=== PATIENT | female | born 1995 | race Hispanic/Latino ===

== ENCOUNTER 2021-08-20 11:41 | Outpatient (CLI) | payer OTHER | END 2021-08-20 11:42 | disposition home or self-care (01) | LOC: CSHLAB 11:41 | PROVIDERS: ATTEND Student in an Organized Health Care Education/Training Program | DX: Z20.822 Contact with and (suspected) exposure to COVID-19 (principal) | CPT/HCPCS: U0003; U0005 ==

== ENCOUNTER 2021-08-24 19:30 | Inpatient (IN) | payer OTHER ==
[2021-08-24 20:24] VITALS: BMI 37.0
[2021-08-24] MEDS ORDERED: Promethazine HCl 25 MG/ML VIAL IM PRN (21:17)
[2021-08-24] MEDS ORDERED: Lidocaine 1% (PF) 30 ML VIAL SC PRN (21:17)
[2021-08-24] MEDS ORDERED: Methylergonovine 0.2 MG/ML VIAL IM PRN (21:17)
[2021-08-24] MEDS ORDERED: HYDROcodone/Acetaminophen 5/325 mg Tablet PO PRN (21:17)
[2021-08-24] MEDS ORDERED: Insulin Regular 300 UNITS/3 ML VIAL SC PRN (21:17)
[2021-08-24] MEDS ORDERED: Acetaminophen 500 MG TAB PO PRN (21:17)
[2021-08-24] MEDS ORDERED: Carboprost 250 MCG/ML AMP IM PRN (21:17)
[2021-08-24] MEDS ORDERED: Dextrose 50% Abboject 50 ML SYRINGE SLOW IVP PRN (21:17)
[2021-08-24] MEDS ORDERED: Dextrose 5% in Water 1,000 ML IV PRN (21:17)
[2021-08-24] MEDS ORDERED: hydrALAZINE 20 MG/ML VIAL SLOW IVP PRN (21:17)
[2021-08-24] MEDS ORDERED: Misoprostol 200 MCG TAB PR PRN (21:17)
[2021-08-24] MEDS ORDERED: Ibuprofen 800 MG TAB PO PRN (21:17)
[2021-08-24] MEDS ORDERED: Butorphanol Tartrate 1 MG/ML VIAL SLOW IVP PRN (21:17)
[2021-08-24] MEDS ORDERED: Diphenoxylate HCl/Atropine Tablet PO PRN (21:17)
[2021-08-24] MEDS ORDERED: Ondansetron PF 4 MG/2 ML Vial IVP PRN (21:17)
[2021-08-24] MEDS ORDERED: Misoprostol 100 MCG TAB ONE (21:29)
[2021-08-24] MEDS ORDERED: NS w/ Oxytocin 30 units 500 ML IV SCH (21:30)
[2021-08-24] MEDS ORDERED: Lactated Ringer's 1,000 ML IV SCH (21:30)
[2021-08-24 21:31] LABS: Hemoglobin 11.3 g/dL (12.0-15.5); Mean Corpuscular HGB CONC 33.5 g/dL (32.0-36.0); Mean Corpuscular Hemoglobin 26.9 pg (27.0-33.0); Mean Corpuscular Volume 80.2 fl (81.6-98.3); Mean Platelet Volume 11.9 fl (7.4-10.4); Platelet Count 217 10x3/uL (150-450); RBC Distribution Width 14.9 % (11.5-14.5); White Blood Cell (WBC) Count 11.5 10x3/uL (3.5-10.5)
[2021-08-24] MEDS: Misoprostol 100 MCG TAB VAG SCH (21:42)
[2021-08-24 22:11] LABS: Hep B Surf Ag Non-Reactive S/CO (NonReactive); Syphilis Antibody Nonreactive (Nonreactive); Syphilis Antibody Index 0.04 S/CO (<1.00 Non-Reactive)
[2021-08-24 22:15] LABS: HBSAg Index 0.15 S/CO (0-0.99)
[2021-08-24 23:08] LABS: Glucose 81 mg/dL (70-105)
[2021-08-25] MEDS: NS w/ Oxytocin 30 units 500 ML IV SCH ×2 (08:14→09:39)
[2021-08-25] MEDS ORDERED: Ondansetron PF 4 MG/2 ML Vial IVP PRN (09:14)
[2021-08-25] MEDS ORDERED: Milk Of Magnesia 30 ML UDCUP PO PRN (09:14)
[2021-08-25] MEDS ORDERED: HYDROcodone/Acetaminophen 5/325 mg Tablet PO PRN ×2 (09:14)
[2021-08-25] MEDS ORDERED: Promethazine HCl 25 MG/ML VIAL IM PRN (09:14)
[2021-08-25] MEDS ORDERED: diphenhydrAMINE 25 MG CAP PO PRN (09:14)
[2021-08-25] MEDS ORDERED: Preparation H Ointment 28 GM TUBE PR PRN (09:14)
[2021-08-25] MEDS ORDERED: hydrALAZINE 20 MG/ML VIAL SLOW IVP PRN (09:14)
[2021-08-25] MEDS ORDERED: Lanolin Ointment 7 GM TUBE TOP PRN (09:14)
[2021-08-25] MEDS ORDERED: Benzocaine-Menthol 82.5 ML CAN TOP PRN (09:14)
[2021-08-25] MEDS ORDERED: Boostrix 0.5 ML (Tdap) VIAL IM ONE (09:14)
[2021-08-25] MEDS ORDERED: Bisacodyl 10 MG SUPP PR PRN (09:14)
[2021-08-25] MEDS ORDERED: NS w/ Oxytocin 30 units 500 ML ONE (09:43)
[2021-08-25] MEDS: metFORMIN 500 MG TAB PO SCH ×2 (10:04→17:42)
[2021-08-25] MEDS: Misoprostol 100 MCG TAB VAG SCH (10:14)
[2021-08-25] MEDS: Docusate 100 MG CAP PO SCH ×2 (11:23→21:20)
[2021-08-25] MEDS: Prenatal Vitamin 1 TAB PO SCH (11:23)
[2021-08-25] MEDS: Ferrous Sulfate 325 MG TAB PO SCH (11:23)
[2021-08-25] MEDS: Ibuprofen 800 MG TAB PO SCH ×2 (14:31→21:20)
[2021-08-26] MEDS: Ibuprofen 800 MG TAB PO SCH ×2 (05:09→13:49)
[2021-08-26 08:11] VITALS: BP 104/53; TEMP 97.6
[2021-08-26] MEDS: Prenatal Vitamin 1 TAB PO SCH (08:35)
[2021-08-26] MEDS: metFORMIN 500 MG TAB PO SCH (08:35)
[2021-08-26] MEDS: Docusate 100 MG CAP PO SCH (08:35)
[2021-08-26] MEDS: Ferrous Sulfate 325 MG TAB PO SCH ×2 (08:37→09:46)
== END 2021-08-26 14:14 | disposition home or self-care (01) | DRG 807 ==
LOC: CSHLD 19:53 → CSHPP 08-25 10:25
PROVIDERS: ADMIT Student in an Organized Health Care Education/Training Program; ATTEND Student in an Organized Health Care Education/Training Program
PROC: 10E0XZZ Delivery of Products of Conception, External Approach (ICD-10-PCS; principal; 2021-08-25)
DX: O24.424 Gestational diabetes mellitus in childbirth, insulin controlled (principal); Z37.0 Single live birth; Z79.4 Long term (current) use of insulin; Z3A.38 38 weeks gestation of pregnancy; Z79.82 Long term (current) use of aspirin
CPT/HCPCS: 36416; 82947; 85027; 86780; 86850; 86900; 86901; 87340; J0595; J2590

== ENCOUNTER 2022-09-26 02:06 | Emergency (ER) | payer OTHER ==
[2022-09-26] MEDS ORDERED: predniSONE 20 MG TAB ONE (02:29)
== END 2022-09-26 02:30 | disposition home or self-care (01) ==
LOC: CSHERS 02:06
DX: G51.0 Bell's palsy (principal); E11.9 Type 2 diabetes mellitus without complications
CPT/HCPCS: 99283; J7512